=== PATIENT | male | born 1965 | race Caucasian/White ===

== ENCOUNTER → 2018-10-26 | Outpatient (CLI) | payer OTHER ==
--- NOTE | 2018-10-27 08:12 | RADIOLOGY REPORT (SQ) ---
EXAM DESCRIPTION: TOE LEFT COMPLETED DATE/TIME: 10/26/2018 8:22 pm REASON FOR STUDY: (M79.675) PAIN IN LEFT TOE(S) COMPARISON: None. NUMBER OF VIEWS: Three views foot and pinky toe. LIMITATIONS: None. FINDINGS: Normal bone density. Fracture through the distal shaft of the proximal phalanx of the pin ky toe with slight dorsal and minimal lateral displacement. Other bones look intact. OTHER: No other significant finding. IMPRESSION: Proximal phalanx pinky toe fracture with slight displacement. TECHNICAL DOCUMENTATION: JOB ID: [id number] Reading location - IP/workstation name: [email or web address]
== END ==
LOC: RAD 19:55
PROVIDERS: ATTEND Nurse Practitioner Family
DX: M79.675 Pain in left toe(s) (principal)

== ENCOUNTER 2018-10-27 10:32 | Emergency (ER) | payer OTHER ==
[2018-10-27 10:38] VITALS: BP 145/96
--- NOTE | 2018-10-27 10:49 | ER Document Report ---
HPI - HPI Patient complains to provider of: Left fifth toe injury Time Seen by Provider: 10/27/18 10:42 Onset/Duration: Persistent Quality of pain: Achy Pain Level: 2 Context: Patient was walking and caught his toe on the corner bathroom 5 days ago. Patient was seen on outpatient basis in urgent care and had x-rays that were performed here. Patient states he was told he had a fracture and a dislocation and was advised to come here for further treatment. Patient denies any new injury. Associated Symptoms: Other - Left fifth toe pain Exacerbated by: Movement, Walking Relieved by: Denies Similar symptoms previously: No Recently seen / treated by doctor: Yes - ROS ROS below otherwise negative: Yes Systems Reviewed and Negative: Yes All other systems reviewed and negative - NEURO Neurology: DENIES: Weakness - GASTROINTESTINAL Gastrointestinal: DENIES: Nausea - MUSCULOSKELETAL Musculoskeletal: REPORTS: Extremity pain - DERM Skin Color: Ecchymosis Skin Problems: None Past Medical History - General Information source: Patient - Social History Smoking Status: Never Smoker Frequency of alcohol use: None Drug Abuse: None Occupation: Assistant Administrator Family History: Reviewed & Not Pertinent Patient has suicidal ideation: No Patient has homicidal ideation: No - Medical History Medical History: Negative Renal/ Medical History: Denies: Hx Peritoneal Dialysis Musculoskeletal Medical History: Denies Hx Arthritis Surgical Hx: Negative - Immunizations Hx Diphtheria, Pertussis, Tetanus Vaccination: Yes Vertical Provider Document - CONSTITUTIONAL Agree With Documented VS: Yes Exam Limitations: No Limitations General Appearance: WD/WN, No Apparent Distress - INFECTION CONTROL TRAVEL OUTSIDE OF THE [place] IN LAST 30 DAYS: No - HEENT HEENT: Atraumatic, Normocephalic - NECK Neck: Normal Inspection - RESPIRATORY Respiratory: No Respiratory Distress - CARDIOVASCULAR Pulses: Normal: Dorsalis pedis - MUSCULOSKELETAL/EXTREMETIES Musculoskeletal/Extremeties: MAEW, Tender - Tenderness to left fifth toe with mild ecchymosis and 1+ edema, no deformity, Edema. negative: Eccymosis - NEURO Level of Consciousness: Awake, Alert, Appropriate Motor/Sensory: No Motor Deficit - DERM Integumentary: Warm, Dry Course - Re-evaluation Re-evalutation: 10/27/18 10:48 Patient pain medication, patient declined. Reviewed patient's x-ray from outpatient orders. Patient with fracture with some displacement, no dislocation. - Vital Signs Vital signs: Temp Pulse Resp BP Pulse Ox 98.1 F 82 16 145/96 H 97 10/27/18 10:37 10/27/18 10:37 10/27/18 10:37 10/27/18 10:37 10/27/18 10:37 - Diagnostic Test Radiology reviewed: Image reviewed, Reports reviewed Procedures - Immobilization Left Toe 5th digit Pre-Proc Neuro Vasc Exam: Normal Immobilizer type: Post-op shoe Performed by: RN Post-Proc Neuro Vasc Exam: Normal Alignment checked and good: Yes Discharge - Discharge Clinical Impression: Toe fracture, left Qualifiers: Encounter type: initial encounter Toe: lesser toe Fracture type: closed Phalanx: proximal Fracture alignment: displaced Qualified Code(s): S92.512A - Displaced fracture of proximal phalanx of left lesser toe(s), initial encounter for closed fracture Condition: Stable Disposition: HOME, SELF-CARE Instructions: Acetaminophen, Bryn Taping (toes) ([facility]), Use of Olaw-Zzj-Ttcnvkj Ibuprofen ([facility]), Post-Op Shoe ([facility]), Fractured Toe ([facility]) Additional Instructions: Return immediately for any new or worsening symptoms Followup with your primary care provider, call tomorrow to make a followup appointment Follow-up with orthopedics for further evaluation, call today to make a follow- up appointment Referrals: DELFINA DUNN MD [Primary Care Provider] - Follow up as needed [facility] [Provider Group] - Follow up tomorrow
== END 2018-10-27 11:11 | disposition home or self-care (01) ==
LOC: ER 10:32
DX: S92.512A Displaced fracture of proximal phalanx of left lesser toe(s), initial encounter for closed fracture (principal); W22.09XA Striking against other stationary object, initial encounter
CPT/HCPCS: 99283